=== PATIENT | male | born 1980 | race Caucasian/White ===

== ENCOUNTER 2016-11-16 17:27 | Emergency (ER) | payer OTHER ==
[~2016-11-16] VITALS: Ht 172.7 cm; Wt 56.7 kg
[~2016-11-16 17:27] MED LIST: ALEVE220 M1 PO; BACLOFEN 10MG T10 M1 PO; FLEXERIL PO; FLOMAX PO; IBUPROFEN 600600 M1 PO; IRON325 PO; LEXAPRO 10 MG T10 M2 PO; NABUMETONE 500500 M1 PO; NAPROSYN500 MG PO; NORCO 5-325 TA1 EACH PO; NUCYNTA ER150 MG PO; PERCOCET 10-321 EACH PO; PERCOCET 5-3251 EACH; PERCOCET 5-3251 EACH PO; PERCOCET 7.5-31 EACH PO; PHENERGAN 25 MG25 M1 PO; PROTONIX40 MG PO; PYRIDIUM200 M1 PO; TRAZODONE HCL50 MG PO; VALIUM5 MG PO; VICODIN 5-5001 EACH PO; ZOFRAN4 MG PO; ZOFRAN8 MG PO
[2016-11-16] MEDS ORDERED: NORFLEX100 MG PO (19:00)
[2016-11-16] MEDS ORDERED: NAPROSYN500 MG PO (19:00)
== END 2016-11-16 19:09 | disposition home or self-care (01) ==
LOC: ER 17:27
DX: M54.6 Pain in thoracic spine (principal); F17.210 Nicotine dependence, cigarettes, uncomplicated

== ENCOUNTER 2017-02-07 18:29 | Emergency (ER) | payer OTHER ==
[~2017-02-07] VITALS: Ht 172.7 cm; Wt 55.3 kg
[~2017-02-07 18:29] MED LIST changes: +NORFLEX100 MG PO
[2017-02-09] MEDS ORDERED: ZOLOFT25 MG PO (09:45)
== END 2017-02-07 19:29 | disposition home or self-care (01) ==
LOC: ER 18:29
DX: Z53.21 Procedure and treatment not carried out due to patient leaving prior to being seen by health care provider (principal)

== ENCOUNTER → 2017-02-09 | Outpatient (CLI) | payer OTHER ==
[~2017-02-09] VITALS: Ht 172.7 cm; Wt 60.1 kg
[~2017-02-09] MED LIST changes: +ZOLOFT25 MG PO
--- NOTE | ~2017-02-09 | HPC ---
[facility] [address] [place] [address] PAIN MANAGEMENT CONSULTATION Name: JUAN C RESENDEZ Room #: REG CL M..#: [id number] Admission: 02/09/17 Attend Phys: Ruddy Buckner DO Discharge: Date of : 80 Report #: [id number] THIS REPORT FOR: //name// CC: Ruddy Bright DATE OF SERVICE: 02/09/2017 CHIEF COMPLAINT: Low back pain and bilateral lower extremity pain. HISTORY OF PRESENT ILLNESS: As you know, the patient is a very unfortunate 36-year-old male who returns today in followup visit with increasing back pain and bilateral lower extremity pain. The patient has been evaluated for bilateral sacroiliac joint pain. 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 He continues to experience axial back pain and bilateral lower extremity pain for which he places pain score at around 8/10-15/10. He states pain is constant in nature. The patient was initially seen in our clinic a couple years back where he is requesting medication management. We have chosen at that time not to initiate opioid therapy in this patient, apparently had trouble with opioids in the past and we were not going to be involved in initiating any long-term opioid therapy in a 35-year-old male. He returns in followup visit to request assistance for possible epidural injection. ALLERGIES: No known drug allergies. CURRENT MEDICATIONS: Sertraline 25 mg once a day. SOCIAL HISTORY: The patient reports he continues to smoke. He denies IV or illicit drug use. Denies any chronic alcohol use. He states he is working. He is unaccompanied today. IMAGING DATA: There is no new imaging available. PHYSICAL EXAMINATION: VITAL SIGNS: Blood pressure 130/88, pulse 72 and respiratory rate 14 and unlabored. The patient is 100% on room air, height 5 feet 8 inches tall, weight 132.4 pounds and BMI calculated 20.1. GENERAL: Well-developed, well-nourished, well-hydrated, thin 36-year-old male, appears much older than stated age. He is displaying multiple pain behaviors even in a lying position. EXTREMITIES: Show no clubbing, no cyanosis and no edema. MUSCULOSKELETAL: There is some palpatory tenderness over the paraspinal musculature of lower lumbar spine. No spinous process tenderness. Deep palpation over the SI joint causes intensification of pain as does palpation over the lumbosacral junction. Seated straight leg raising negative. Supine [facility] [address] [place] [address] PAIN MANAGEMENT CONSULTATION Name: JUAN C RESENDEZ Room #: REG CLLarry Darby#: [id number] Admission: 02/09/17 Attend Phys: Ruddy Buckner DO Discharge: Date of : 80 Report #: [id number] straight leg raising is equivocal. Devika's test is negative except for SI joint pain. ASSESSMENT: 1. Chronic low back pain. 2. Lumbosacral spondylosis without true radicular symptoms. 3. Atypical lumbar radicular pain. 4. Lumbar degeneration. 5. Bilateral sacroiliac joint dysfunction. 6. Chronic intractable pain. PLAN: 1. The patient has returned today in followup visit indicating that he is not a candidate for SI joint fusion. Apparently, the surgeon evaluated the patient's case indicated that his SI joints are essentially fused at this time and thus cannot be generating symptoms. He was advised that no surgical options were available. He was to return to his PCP for continuation of management with nonsteroidal anti-inflammatories and low-dose opioids. The patient apparently is unable to receive medications through his PCP and made appointment back with us even though we had indicated in the past we would not be involved in that type of therapy in his case. Given the trouble he had had with opioids prior to his release from our clinic at last visit, we indicated we would not be involved in long-term therapy. We did not feel this was an appropriate treatment option for 36-year-old individual. He returns today where we have discussed this once again, I have advised the patient that we would not be providing opioid therapy in his case. We would certainly be willing to provide nonsteroidal anti-inflammatories referrals to physical therapy and he could see surgeons if he wished. We could trial injection therapies if they were beneficial, but we would not be involved in managing his symptoms medically. I do not feel a 36-year-old male needs to be on alf medication management for axial back pain and intermittent lower extremity symptoms that are not necessarily surgical. I did make the patient again aware of this today. 2. The patient has requested and we will perform injection into his lower lumbar region to help for pain control. The patient was advised of the risks and the benefits of this procedure. These risks include but are not necessarily limited to bleeding, bruising, infection, worsening pain, no relief of pain, also risk of temporary or permanent muscle weakness, temporary or permanent paralysis and . The patient states understood and wished to proceed. 3. No medication changes made at today's visit. The patient is to continue current medical therapy as previously prescribed. 4. We will see the patient back in followup visit on an as needed basis for possible repeat injection. PROCEDURE NOTE DESCRIPTION OF PROCEDURE: Lumbar epidural steroid injection under fluoroscopic [address] [address] PAIN MANAGEMENT CONSULTATION Name: JUAN C RESENDEZ Room #: REG [facility]#: [id number] Admission: 02/09/17 Attend Phys: Ruddy Buckner DO Discharge: Date of : 80 Report #: [id number] guidance. This is the first procedure of the first series that the patient is undergoing. After obtaining written consent, the patient was taken back to the fluoroscopy suite, placed in a prone position with pillow under the abdomen to decrease lumbar lordosis. The skin overlying the lumbosacral area was then prepped and draped in aseptic fashion. The lumber vertebral interspace was then identified by AP fluoroscopy. The skin and subcutaneous tissue overlying the target site of injection was anesthetized with 3 mL 1% lidocaine. A 20-guage 3-1/2 inch Tuohy needle was then advanced under fluoroscopic guidance towards the epidural space using a midline approach. The epidural space was identified using loss of resistance to air technique. After negative aspiration for heme or cerebrospinal fluid, a total of 1 mL of Omnipaque was injected. A lumbar epidurogram was confirmed using both AP and lateral fluoroscopy. After negative aspiration for heme or cerebrospinal fluid, 5 mL of a solution containing 2 mL 40 mg per mL, 80 mg total triamcinolone, 3 mL lidocaine 1% was injected in increments. Contrast spread was noted posterior epidural space. The needle was then retracted approximately half way and needle tract flushed with 1 mL of 1% lidocaine. Needle was then removed. There were no apparent sensory or motor deficits in the lower extremity following the procedure. A sterile bandage was placed over the injection site. The heart rate, pulse, oximetry and blood pressure were continuously monitored after the procedure. There were no apparent complications. The patient tolerated the procedure well and was carefully escorted to the recovery room in stable condition. There were no apparent complications. After meeting discharge criteria, the patient was then discharged home. By: [id number] Ruddy Buckner DO /nt
[2017-02-09 09:28] VITALS: BP 130/88
== END | disposition home or self-care (01) ==
LOC: PAIN
DX: M54.16 Radiculopathy, lumbar region (principal); G89.29 Other chronic pain; F17.210 Nicotine dependence, cigarettes, uncomplicated

== ENCOUNTER 2017-02-25 11:19 | Emergency (ER) | payer OTHER ==
[~2017-02-25] VITALS: Ht 167.6 cm; Wt 68.0 kg
[2017-02-25 11:55] LABS: ABSOLUTE NEUTROPHILS 4.2 thou/uL (1.4-8.2); BASOPHILS 1.1 % (0.0-2.0); EOSINOPHILS 1.9 % (0.0-3.0); HEMATOCRIT 41.9 % (42.0-52.0); HEMOGLOBIN 13.8 gm/dL (14.0-18.0); LYMPHOCYTES 16.7 % (24.0-44.0); MCH 27.4 pg (26.0-34.0); MCHC 32.8 g/dL (28.0-37.0); MCV 83.5 fL (80.0-100.0); MONOCYTES 6.1 % (1.0-8.0); PLATELET COUNT 266 thou/uL (150-400); POLYS 74.2 % (36.0-66.0); RBC 5.02 mil/uL (4.50-6.00); RDW 15.3 % (10.5-14.5); WBC 5.7 thou/uL (4.0-11.0)
[2017-02-25 11:56] LABS: MANUAL DIFF NO
[2017-02-25 12:04] LABS: ANION GAP 9 mmol/L (7-16); BUN 16 mg/dL (7-18); CALCIUM 8.9 mg/dL (8.5-10.1); CHLORIDE 105 mmol/L (98-107); CO2 28 mmol/L (21-32); CREATININE 1.1 mg/dL (0.7-1.3); GLUCOSE 83 mg/dL (74-106); POTASSIUM 3.8 mmol/L (3.5-5.1); SODIUM 142 mmol/L (136-145)
[2017-02-25 12:09] LABS: ALKALINE PHOSPHATASE 78 U/L (46-116); DIRECT BILIRUBIN < 0.1 mg/dL (<0.1-0.3); SGOT 14 U/L (15-37); SGPT 17 U/L (30-65); TOTAL BILIRUBIN 0.5 mg/dL (<0.1-1.0)
[2017-02-25 12:57] LABS: URINE BILIRUBIN NEGATIVE (Negative); URINE BLOOD TRACE (Negative); URINE COLOR YELLOW; URINE GLUCOSE-RANDOM* NEGATIVE (Negative); URINE KETONES NEGATIVE (Negative); URINE NITRITE NEGATIVE (Negative); URINE PROTEIN (DIPSTICK) NEGATIVE (Negative); URINE UROBILINOGEN 0.2 E.U./dl (0.2-1.0)
== END 2017-02-25 13:15 | disposition home or self-care (01) ==
LOC: ER 11:19
PROVIDERS: Emergency Medicine
DX: G89.29 Other chronic pain (principal); R10.32 Left lower quadrant pain; M81.0 Age-related osteoporosis without current pathological fracture; M47.9 Spondylosis, unspecified; F17.210 Nicotine dependence, cigarettes, uncomplicated

== ENCOUNTER → 2017-03-01 | Outpatient (CLI) | payer OTHER ==
[~2017-03-01] VITALS: Ht 172.7 cm; Wt 58.5 kg
[~2017-03-01] MED LIST changes: +CALCIUM 500 +1 EAC5 PO; +TORADOL 10 MG T10 MG PO
--- NOTE | ~2017-03-01 | HPC ---
[facility] [place] [address] PAIN MANAGEMENT CONSULTATION Name: JUAN C RESENDEZ Room #: REG CL M..#: [id number] Admission: 03/01/17 Attend Phys: Ruddy Buckner DO Discharge: Date of : 80 Report #: [id number] THIS REPORT FOR: //name// CC: Ruddy THAYER DATE OF SERVICE: 03/01/2017 CHIEF COMPLAINT: Low back pain, bilateral lower extremity pain. HISTORY OF PRESENT ILLNESS: As you know, the patient is a very unfortunate 36-year-old male who returns today in followup visit with increasing back pain, bilateral lower extremity pain. The patient reports he is recently in the emergency department due to increasing pain issues. He was provided treatment in the emergency department, but was not admitted as this was chronic pain issues. He was subsequently discharged home. He makes today's appointment indicating he received benefit with the epidural injection, but it was short lived. He returns today to discuss a possible repeating injection in hopes of improving pain. He is placing his pain score today at 8/10, states his pain is constant and sharp in sensation, exacerbated with sitting, bending, lifting, any type of activity, nothing appears to alleviate his pain for any length of time. He returns today per the request of his nurse practitioner, Bette Novak to undergo the next in a series of injections in hopes of improving pain. ALLERGIES: No known drug allergies. CURRENT MEDICATIONS: Calcium carbonate 1 tab per day, sertraline 25 mg once a day. SOCIAL HISTORY: The patient reports he is a former smoker. He denies IV or illicit drug use. Denies any chronic alcohol use. He reports he is working. He is unaccompanied today. IMAGING: No new imaging available. PHYSICAL EXAMINATION: VITAL SIGNS: Blood pressure 121/85, pulse is 66, respiratory rate 16, unlabored. The patient is 100% on room air, height 5 feet 8 inches tall, weight 129 pounds, BMI calculated 19.6. GENERAL: Well-developed, well-nourished, well-hydrated, thin 36-year-old male who appears older than stated age. He is displaying multiple pain behaviors. EXTREMITIES: Show no clubbing, no cyanosis, no edema. MUSCULOSKELETAL: Lower extremity strength appears equal and symmetrical. Seated straight leg raising negative. Supine straight leg raising is equivocal. [address] [address] PAIN MANAGEMENT CONSULTATION Name: JUAN C RESENDEZ Room #: REG ALETA Agudelo.#: [id number] Admission: 03/01/17 Attend Phys: Ruddy Buckner DO Discharge: Date of : 80 Report #: [id number] Mariam's test is negative. Modified Gaenslen's positive for axial low back. ASSESSMENT: 1. Chronic low back pain. 2. Lumbosacral spondylosis with radicular symptoms. 3. Atypical lumbar radiculopathy. 4. Lumbar degeneration. 5. Facet arthropathy of the lumbar spine. 6. Chronic intractable pain. PLAN: 1. The patient returns today in followup visit having return of pain. The patient underwent an epidural injection 2 weeks ago. He indicates he received some improvement in symptoms, but it was only transient in nature. He was subsequently has seen in the emergency department for right lower quadrant abdominal pain and discharged after evaluation, diagnosed with abdominal pain secondary to GI distress. He was advised to change diet and follow up with his PCP. It does not appear the patient had any changes in his medical history. There was no imaging done on this evaluation. 2. The patient and I did discuss the possibility of providing a different type of injection today in hopes of improving symptoms. He was amenable to undergo bilateral transforaminal epidural injections at L5-S1 to potentially improve the back pain and lower extremity symptoms. I have advised the patient of the risks and benefits of this procedure. He states he understood and does wish to proceed. 3. The patient will be provided a prescription of Toradol 10 mg dose 1 tab p.o. q.i.d. He was given #15 tablets for 5 days' worth of therapy. This is the longest he can remain on the Toradol therapy. We are hopeful this will provide some analgesic benefit. If this is effective, I would recommend that the patient initiate a consistent nonsteroidal anti-inflammatory to take for axial back pain and lower extremity symptoms. He will contact our clinic once he has completed the 5 days of Toradol therapy to discuss its efficacy. 4. The patient will return to our clinic on an as needed basis. If he does not note improvement in symptoms with the injections provided today and the medications, I would recommend the patient undergo MRI of the lumbar spine. This MRI would then direct what surgical options the patient may need to entertain PROCEDURE NOTE: DESCRIPTION OF PROCEDURE: Bilateral L5-S1 transforaminal epidural injections under fluoroscopic guidance. This is the second procedure of the first series, the patient is undergoing. After obtaining written consent, the patient was taken back to the fluoroscopy [facility] [address] [place] [address] PAIN MANAGEMENT CONSULTATION Name: JUAN C RESENDEZ [id number] Admission: 03/01/17 Attend Phys: Ruddy Buckner DO Discharge: Date of : 80 Report #: [id number] suite, placed in a prone position with pillow under the abdomen to decrease lumbar lordosis. Skin overlying the lumbosacral area was then prepped and draped in aseptic fashion. The L5-S1 vertebrae were identified by fluoroscopy. The neural foramen (6 o'clock position of the pedicle) was then identified utilizing an oblique fluoroscopic view. The skin and subcutaneous tissue overlying the target site of injection was then anesthetized with 3 mL of 1% lidocaine. Using a "tunnel view," a 22-gauge 4-1/2 inch Tuohy needle with a bent tip was advanced towards the left and right side epidural space under fluoroscopic guidance. The final position of the needle was identified using AP and lateral views. There were no paresthesias with final positioning of the needle. After negative aspiration for heme or cerebrospinal fluid, a total of 0.4 mL of Omnipaque was injected under live AP fluoroscopy to demonstrated absence of vascular uptake. AP and lateral imaging demonstrated an excellent L5 neurogram, epidurogram. Pain provocation by the injected contrast material was negative. After negative aspiration for heme or cerebrospinal fluid, 3 mL of a solution containing 1 mL 40 mg per mL 40 mg total triamcinolone, 2 mL of 1% lidocaine at each site was injected in increments. The needle was then retracted approximately mcfp and the needle tract flushed with 1 mL of 1% lidocaine. A sterile bandage placed over the injection site. There were no new motor deficits present in the lower extremities following the procedure. The heart rate, pulse oximetry and blood pressure were continuously monitored after the procedure. There were no apparent complications. The patient tolerated the procedure well and was carefully escorted to the recovery room in stable condition. The VAS was 8/10 before the procedure and 3/10 ten minutes after the procedure. After meeting discharge criteria, the patient was discharged home. By: [id number] Ruddy Buckner DO /nt
[2017-03-01 09:06] VITALS: BP 121/85
== END | disposition home or self-care (01) ==
LOC: PAIN 07:26
DX: M47.27 Other spondylosis with radiculopathy, lumbosacral region (principal); M51.26 Other intervertebral disc displacement, lumbar region; G89.29 Other chronic pain; Z87.891 Personal history of nicotine dependence

== ENCOUNTER → 2019-05-15 | Outpatient (CLI) | payer OTHER ==
[~2019-05-15] MED LIST changes: +BENTYL 20 MG TA20 M1 PO; +FLOMAX0.4 MG PO; +KEFLEX500 M1 PO; +NEURONTIN 300300 M1 PO; +OMEPRAZOLE40 MG PO; +PROZAC20 MG PO; +SEROQUEL 50 MG50 MG PO
== END | disposition home or self-care (01) ==
LOC: LITH 15:23
DX: N20.1 Calculus of ureter (principal); F32.9 Major depressive disorder, single episode, unspecified; F41.9 Anxiety disorder, unspecified; M10.9 Gout, unspecified; M19.90 Unspecified osteoarthritis, unspecified site; Z87.19 Personal history of other diseases of the digestive system; Z98.890 Other specified postprocedural states; Z79.899 Other long term (current) drug therapy